=== PATIENT | male | born 1990 | race Asian ===

== ENCOUNTER 2016-09-13 05:30 | Emergency (ER) | payer OTHER ==
[~2016-09-13] VITALS: Ht 182.9 cm; Wt 102.1 kg
== END 2016-09-13 06:00 | disposition home or self-care (01) ==
LOC: ED 05:30
DX: Z04.8 Encounter for examination and observation for other specified reasons (principal)

== ENCOUNTER 2016-09-18 02:05 | Emergency (ER) | payer OTHER ==
[~2016-09-18] VITALS: Ht 182.9 cm; Wt 102.1 kg
== END 2016-09-18 03:15 | disposition home or self-care (01) ==
LOC: ED 02:05
DX: Z48.02 Encounter for removal of sutures (principal)

== ENCOUNTER 2017-06-08 02:49 | Emergency (ER) | payer OTHER ==
[~2017-06-08] VITALS: Ht 182.9 cm; Wt 103.4 kg
== END 2017-06-08 03:20 | disposition home or self-care (01) ==
LOC: ED 02:49
DX: M79.1 Myalgia (principal)
CPT/HCPCS: 99281